=== PATIENT | male | born 1960 | race Caucasian/White ===

== ENCOUNTER → 2017-12-17 | Outpatient (CLI) | payer OTHER | LOC: FIMAGING 12:25 | PROVIDERS: ATTEND Internal Medicine | DX: M79.661 Pain in right lower leg (principal); M19.071 Primary osteoarthritis, right ankle and foot; Z96.651 Presence of right artificial knee joint ==

== ENCOUNTER → 2018-01-06 | Outpatient (CLI) | payer OTHER | LOC: FIMAGING 18:42 | DX: M23.321 Other meniscus derangements, posterior horn of medial meniscus, right knee (principal); M94.8X6 Other specified disorders of cartilage, lower leg; M71.21 Synovial cyst of popliteal space [Baker], right knee ==

== ENCOUNTER 2018-10-26 10:46 | Inpatient (IN) | payer OTHER ==
[~2018-10-26 10:46] MED LIST: ROPIVACAINE 0.2% 80 MG, EPINEPHrine 0.2 MG, KETOROLAC TROMETHAMINE 30 MG, morphINE 10 M... IU ONE; TRANEXAMIC ACID 1,000 MG in NS 100 ML IV ONE
[2018-10-26] MEDS ORDERED: ceFAZolin 1 GM/5 ML SYR ONE (10:54)
[2018-10-26] MEDS ORDERED: BUPIVACAINE 0.5% 30 ML SDV ONE (10:54)
[2018-10-26] MEDS ORDERED: ceFAZolin 2 GM/DEXTROSE 100 ML IV ONE (11:05)
[2018-10-26] MEDS ORDERED: LR 1,000 ML IV ONE (11:06)
[2018-10-26] MEDS ORDERED: LIDOCAINE 1% 2 ML INJ ID PRN (11:06)
[2018-10-26] MEDS ORDERED: MIDAZOLAM 2 MG/2 ML VIAL IVP ONE (11:56)
[2018-10-26] MEDS ORDERED: BUPIVACAINE/DEXTROSE 7.5MG/ML 2 ML SPINAL AMP SP ONE (12:17)
[2018-10-26] MEDS ORDERED: PROPOFOL 200 MG/20 ML VIAL ONE (12:17)
[2018-10-26] MEDS ORDERED: LIDOCAINE 2% 5 ML SDV ONE (12:17)
[2018-10-26] MEDS ORDERED: PROPOFOL/EMULSION 500 MG/50 ML BOTTLE IV ONE ×4 (12:17→14:58)
[2018-10-26] MEDS ORDERED: ONDANSETRON 4 MG/2 ML VIAL IVP PRN ×2 (12:39→15:34)
[2018-10-26] MEDS ORDERED: PHENYLEPHRINE HCL 100 MCG/ML SYR IVP PRN (12:39)
[2018-10-26] MEDS ORDERED: METOCLOPRAMIDE 10 MG/2 ML VIAL IVP PRN ×2 (12:39→15:34)
[2018-10-26] MEDS ORDERED: PROMETHAZINE HCL 25 MG/ML INJ IVP PRN (12:39)
[2018-10-26] MEDS ORDERED: LR 500 ML IV PRN (12:39)
[2018-10-26] MEDS ORDERED: ALBUTEROL 3 ML DEYVIAL IH PRN (12:39)
[2018-10-26] MEDS ORDERED: NALOXONE HCL 0.4 MG/ML INJ IVP PRN ×2 (12:39→15:54)
[2018-10-26] MEDS ORDERED: ACETAMINOPHEN 500 MG TAB PO PRN (12:39)
[2018-10-26] MEDS ORDERED: HYDROmorphONE/DILAUDID 1 MG/ML INJ IVP PRN ×3 (12:39→15:54)
[2018-10-26] MEDS ORDERED: NS 500 ML IV PRN (12:39)
[2018-10-26] MEDS ORDERED: PHENYLEPHRINE HCL 100 MCG/ML SYR ONE (15:04)
[2018-10-26] MEDS ORDERED: MAGNESIUM HYDROXIDE 30 ML UDCUP PO PRN (15:34)
[2018-10-26] MEDS ORDERED: CYCLOBENZAPRINE 10 MG TAB PO PRN (15:34)
[2018-10-26] MEDS ORDERED: POLYETHYLENE GLYCOL 3350 17 GM PKT PO PRN (15:34)
[2018-10-26] MEDS ORDERED: LACTULOSE 20 GM/30 ML UDCUP PO PRN (15:34)
[2018-10-26] MEDS ORDERED: BISACODYL 10 MG SUPP PR PRN (15:34)
[2018-10-26] MEDS ORDERED: TEMAZEPAM 15 MG CAP PO PRN (15:34)
[2018-10-26] MEDS ORDERED: diphenhydrAMINE 25 MG CAP PO PRN (15:34)
[2018-10-26] MEDS ORDERED: ONDANSETRON DISINTEGRATING 4 MG TAB PO PRN (15:34)
[2018-10-26] MEDS ORDERED: DIPHENOXYLATE/ATROPINE LOMOTIL 1 TAB PO PRN (15:34)
[2018-10-26] MEDS ORDERED: HYDROmorphONE/DILAUDID 1 MG/ML INJ ONE (15:44)
[2018-10-26] MEDS ORDERED: fentaNYL 100 MCG/2 ML INJ ONE ×2 (15:44→17:09)
[2018-10-26] MEDS: fentaNYL 100 MCG/2 ML INJ IVP PRN ×3 (15:47→17:22)
[2018-10-26] MEDS ORDERED: oxyCODONE IR 5 MG TAB ONE ×2 (16:23→17:07)
[2018-10-26] MEDS: oxyCODONE IR 5 MG TAB PO PRN ×3 (16:25→21:24)
[2018-10-26] MEDS: KETOROLAC 15 MG/1 ML SDV IVP SCH (18:01)
[2018-10-26] MEDS: LR 1,000 ML IV SCH (18:01)
[2018-10-26] MEDS: ACETAMINOPHEN 325 MG TAB PO SCH (21:25)
[2018-10-26] MEDS: ASPIRIN 325 MG TAB PO SCH (21:25)
[2018-10-26] MEDS: SENNOSIDES/DOCUSATE SODIUM TAB PO SCH (21:26)
[2018-10-26] MEDS: FAMOTIDINE 20 MG TAB PO SCH (21:26)
[2018-10-26] MEDS: ceFAZolin 2 GM/DEXTROSE 100 ML IV SCH (21:26)
[2018-10-27] MEDS: KETOROLAC 15 MG/1 ML SDV IVP SCH ×3 (00:17→11:35)
[2018-10-27] MEDS: ACETAMINOPHEN 325 MG TAB PO SCH ×2 (03:36→08:57)
[2018-10-27] MEDS: LR 1,000 ML IV SCH (03:41)
[2018-10-27] MEDS: ceFAZolin 2 GM/DEXTROSE 100 ML IV SCH (05:56)
[2018-10-27] MEDS: oxyCODONE IR 5 MG TAB PO PRN (08:56)
[2018-10-27] MEDS: SENNOSIDES/DOCUSATE SODIUM TAB PO SCH (08:56)
[2018-10-27] MEDS: ASPIRIN 325 MG TAB PO SCH (08:56)
[2018-10-27] MEDS: FAMOTIDINE 20 MG TAB PO SCH (08:57)
== END 2018-10-27 12:55 | disposition home or self-care (01) | DRG 470 ==
DX: M17.12 Unilateral primary osteoarthritis, left knee (principal)